=== PATIENT | male | born 1990 | race Caucasian/White ===

== ENCOUNTER 2020-02-02 12:25 | Emergency (ER) | payer OTHER ==
[~2020-02-02] VITALS: Ht 182.9 cm; Wt 77.1 kg
[2020-02-02 12:45] VITALS: BP 126/78
--- NOTE | 2020-02-02 12:45 | NUR ---
ED Nurse Note: Patient walked in to ED for evaluation of optic disc swelling of the right eye. Per patient he had blurry and spotting vision for 1 month and seen by neuro-ophthalmology on 01/09/20 at [place]. Per pt, needs MRI and blood work. patient presented calm, VSS at this time.
[2020-02-02] MEDS ORDERED: Gadavist 7.5mMol/7.5ml vial IV PRN ×2 (13:15)
--- NOTE | 2020-02-02 13:20 | NUR ---
ED Nurse Note: IV line was established on left AC 20ga, blood collected sent to lab.
[2020-02-02 13:32] LABS: BASOPHILS % (AUTO) 0.8 % (0.0-2.0); EOSINOPHILS % (AUTO) 3.8 % (0.0-3.0); HEMATOCRIT 47.2 % (42.0-52.0); HEMOGLOBIN 15.5 G/DL (14.2-18.0); LYMPHOCYTES % (AUTO) 22.5 % (20.0-45.0); MEAN CORPUSCULAR VOLUME 89 FL (80-99); MONOCYTES % (AUTO) 6.4 % (1.0-10.0); NEUTROPHILS % (AUTO) 66.5 % (45.0-75.0); PLATELET COUNT 216 K/UL (150-450); RED BLOOD COUNT 5.29 M/UL (4.70-6.10); RED CELL DISTRIBUTION WIDTH 11.4 % (11.6-14.8); WHITE BLOOD COUNT 6.6 K/UL (4.8-10.8)
[2020-02-02 13:37] LABS: ANION GAP 4 mmol/L (5-15); BLOOD UREA NITROGEN 14 mg/dL (7-18); CALCIUM 9.6 MG/DL (8.5-10.1); CARBON DIOXIDE 34 MMOL/L (21-32); CHLORIDE 100 MMOL/L (98-107); CREATININE 0.9 MG/DL (0.55-1.30); POTASSIUM 3.8 MMOL/L (3.5-5.1); SODIUM 138 MMOL/L (136-145)
[2020-02-02 13:43] LABS: ALANINE AMINOTRANSFERASE 31 U/L (12-78); ALBUMIN 4.5 G/DL (3.4-5.0); ALBUMIN/GLOBULIN RATIO 1.1 (1.0-2.7); ALKALINE PHOSPHATASE 81 U/L (46-116); ASPARTATE AMINO TRANSFERASE 20 U/L (15-37); BILIRUBIN,TOTAL 0.3 MG/DL (0.2-1.0)
--- NOTE | 2020-02-02 14:10 | NUR ---
ED Nurse Note: patient was taken to MRI via [facility]
--- NOTE | 2020-02-02 14:14 | Emergency Room Report ---
History of Present Illness General Chief Complaint: Eye Problems Source: Patient (Topher Mg MD) Present Illness HPI 28-year-old male presents to ED for evaluation of blurry vision. States he has been having these symptoms for 1 month now. Was seen by a cherry pitter in [place] was noted to have swelling of the optic disc on the right eye. Was trying to get a referral for an MRI but has been unable to do so for now. Believes that the blurry vision and spots in his eyes are getting worse. Denies photophobia. Denies nausea or vomiting. Denies headache. Denies fevers or chills. No other aggravating relieving factors. Denies any other associated symptoms (Topher Mg MD) Allergies: Coded Allergies: No Known Allergies (Unverified , 02/02/20) COVID-19 Screening Contact w/high risk pt: No Experienced COVID-19 symptoms?: No COVID-19 Testing performed RELATIONS LIAISON: No (Topher Mg MD) Patient History Past Medical History: none Past Surgical History: none Pertinent Family History: none Social History: Denies: smoking, alcohol use, drug use Immunizations: UTD Reviewed Nursing Documentation: PMH: Agreed; PSxH: Agreed (Topher Mg MD) Nursing Documentation-PMH Past Medical History: No Stated History (Topher Mg MD) Review of Systems All Other Systems: negative except mentioned in HPI (Topher Mg MD) Physical Exam Vital Signs Date Time Temp Pulse Resp B/P (MAP) Pulse Ox O2 Delivery O2 Flow Rate FiO2 02/02/20 12:30 98.4 97 18 126/78 (94) 98 Room Air Sp02 EP Interpretation: reviewed, normal General Appearance: no apparent distress, alert, GCS 15, non-toxic Head: normocephalic, atraumatic Eyes: bilateral eye normal inspection, bilateral eye PERRL ENT: hearing grossly normal, normal pharynx, no angioedema, normal voice Neck: full range of motion, supple/symm/no masses Respiratory: chest non-tender, lungs clear, normal breath sounds, speaking full sentences Cardiovascular #1: regular rate, rhythm, no edema Cardiovascular #2: 2+ carotid (R), 2+ carotid (L), 2+ radial (R), 2+ radial (L) , 2+ dorsalis pedis (R), 2+ dorsalis pedis (L) Gastrointestinal: normal bowel sounds, non tender, soft, non-distended, no guarding, no rebound Rectal: deferred Genitourinary: normal inspection, no CVA tenderness Musculoskeletal: back normal, normal range of motion, gait/station normal, non- tender Neurologic: alert, motor strength/tone normal, oriented x3, sensory intact, responsive, speech normal Psychiatric: judgement/insight normal, memory normal, mood/affect normal, no suicidal/homicidal ideation Reflexes: 3+ bicep (R), 3+ bicep (L), 3+ tricep (R), 3+ tricep (L), 3+ knee (R) , 3+ knee (L) Lymphatic: no adenopathy (Topher Mg MD) Medical Decision Making Diagnostic Impression: Primary Impression: Optic neuritis ER Course Patient signed out to me. Patient reports a one-month history of blurry vision and flashes in his right eye. He was seen by an cherry pitter elsewhere and diagnosed with papilledema and recommended MRI. Today MRI was ordered. It did demonstrate evidence of inflammation of the optic sheath of the right eye. We discussed the case with Dr. Fuentes, ophthalmology who recommended high-dose steroids and close follow-up in his clinic in addition to neurology. Patient was started on IV steroids in the ER and will be discharged home on p.o. Solu- Medrol. He was provided follow-up with neurology and ophthalmology. Was given return precautions. (Bonilla Chao M.D.) CT/MRI/US Diagnostic Results CT/MRI/US Diagnostic Results #1: Imaging Test Ordered: MRI brain Impression IMPRESSION: Normal head/brain MRI. CT/MRI/US Diagnostic Results #2: Imaging Test Ordered: MRI orbit Impression IMPRESSION: Very subtle protrusion of the right optic disc and very mild enhancement of the optic nerve sheath compared to the left. Mild papilledema. (Bonilla Chao M.D.) Last Vital Signs Date Time Temp Pulse Resp B/P (MAP) Pulse Ox O2 Delivery O2 Flow Rate FiO2 02/02/20 12:45 98.4 18 126/78 98 Room Air 02/02/20 12:30 97 (Topher Mg MD) Disposition: HOME, SELF-CARE Condition: Stable Scripts Methylprednisolone (Methylprednisolone*) 4MG Dspk 4 MG ORAL DIRECTED for 6 Days, #21 EA 0 Refills Day 1: Two tablets before breakfast, one after lunch, one after dinner, and two at bedtime. If started late in the day, take all six tablets at once or divide into two or three doses, unless otherwise directed by prescriber. Day 2: One tablet before breakfast, one after lunch, one after dinner, and two at bedtime Day 3: One tablet before breakfast, one after lunch, one after dinner, and one at bedtime Day 4: One tablet before breakfast, one after lunch, and one at bedtime Day 5: One tablet before breakfast and one at bedtime Day 6: One tablet before breakfast Prov: Bonilla Chao M.D. 02/02/20 Referrals: NON PHYSICIAN (PCP) Topher Mg MD Feb 02, 2020 14:14 Bonilla Chao M.D. Feb 02, 2020 17:42
--- NOTE | 2020-02-02 15:20 | NUR ---
ED Nurse Note: PATIENT IS BACK FROM MRI, NAD NOTED
--- NOTE | 2020-02-02 16:12 | Diagnostic Imaging Report ---
EXAM: MR Head Without and With Intravenous Contrast CLINICAL HISTORY: 28-year-old male presents to ED for evaluation of blurry vision. States he has been having these symptoms for 1 month now. Was seen by a [employer] in [place] was noted to have swelling of the optic disc on the right eye. Was trying to get a referral for an MRI but has been unable to do so for now. Believes that the blurry vision and spots in his eyes are getting worse. Denies photophobia. Denies nausea or vomiting. Denies headache. Denies fevers or chills. No other aggravating relieving factors. Denies any other associated TECHNIQUE: Magnetic resonance images of the head/brain without and with intravenous contrast in multiple planes. COMPARISON: No relevant prior studies available. FINDINGS: Brain: Unremarkable. No mass. No hemorrhage. No acute infarct. No abnormal enhancement. No intra-axial or extra axial fluid collections or masses. No abnormal signal. Ventricles: Unremarkable. No ventriculomegaly. Bones/joints: Unremarkable. Sinuses: Unremarkable as visualized. No acute sinusitis. Mastoid air cells: Unremarkable as visualized. No mastoid effusion. Orbits: Unremarkable as visualized. IMPRESSION: Normal head/brain MRI.
--- NOTE | 2020-02-02 16:25 | Diagnostic Imaging Report ---
EXAM: MR Orbits Without and With Intravenous Contrast () CLINICAL HISTORY: 28-year-old male presents to ED for evaluation of blurry vision. States he has been having these symptoms for 1 month now. Was seen by a insurance administrative assistant in [place] was noted to have swelling of the optic disc on the right eye. Was trying to get a referral for an MRI but has been unable to do so for now. Believes that the blurry vision and spots in his eyes are getting worse. Denies photophobia. Denies nausea or vomiting. Denies headache. Denies fevers or chills. No other aggravating relieving factors. Denies any other associated TECHNIQUE: Multiplanar magnetic resonance images of the orbits without and with intravenous contrast. COMPARISON: No relevant prior studies available. FINDINGS: Orbits: Very subtle protrusion of the right optic disc and very mild enhancement of the optic nerve sheath compared to the left. No masses. No fluid collections. Extraocular muscles are unremarkable. Sinuses: Mild ethmoid sinus mucosal thickening. No air-fluid levels. Mastoid air cells: Mild bibasilar mastoid air cell fluid. Bones/joints: Unremarkable. Soft tissues: Unremarkable. IMPRESSION: Very subtle protrusion of the right optic disc and very mild enhancement of the optic nerve sheath compared to the left. Mild papilledema.
[2020-02-02] MEDS ORDERED: methylPREDNISolone Sod Succ 1,000 MG in NS 275 ML IVPB ONE (17:00)
[2020-02-02] MEDS ORDERED: MEDROL DOSEPAK4 MG ORAL (17:16)
[2020-02-02 18:07] VITALS: BP 126/78
--- NOTE | 2020-02-02 18:07 | NUR ---
ER DISCHARGE NOTE: Patient is cleared to be discharged per ERMD, pt is aox4, on room air, with stable vital signs. pt was given dc and prescription instructions, pt was able to verbalize understanding, pt id band and iv site removed without complications. pt is able to ambulate with steady gait. pt took all belongings.
== END 2020-02-02 18:07 | disposition home or self-care (01) ==
LOC: EMR 12:54 → EDBD 12:54 → EMR 18:07
DX: H46.9 Unspecified optic neuritis (principal)
CPT/HCPCS: 36415; 70543; 70553; 80053; 82164; 85025; 85651; 86592; 96365; A9585; J7050; Z7502; 99284